=== PATIENT | female | born 1985 | race Caucasian/White ===

== ENCOUNTER 2017-06-01 16:18 | Outpatient (CLI) | payer OTHER ==
[~2017-06-01] VITALS: Ht 157.5 cm; Wt 71.3 kg
[2017-06-01 16:47] VITALS: BP 116/58; PULSE 92; RESP 19; Ht 157.5 cm; Wt 71.3 kg
[2017-06-01] MEDS ORDERED: PREN1TAB13 PO (16:49)
--- NOTE | 2017-06-01 18:03 | RADRPT ---
PROCEDURE: US OB biophysical profile. CLINICAL INDICATION: Decreased movements TECHNIQUE: Multiple sonographic images of the pelvis were obtained. The images were reviewed on a PACS workstation. COMPARISON: None FINDINGS: There is a viable intrauterine gestation. There is a normal amount of amniotic fluid with an JAVIER = 10.2 cm. Cardiac activity is present with 146 beats per minute. The placenta is posterior. No evidence of placenta previa or abruption. Biophysical profile: movement 2/2 tone 2/2. breathing 2/2 JAVIER 2/2 Total 04/01 IMPRESSION: Normal biophysical profile. Estimated gestational age: 38 weeks and 6 days RPTAT:AAJJ Physician Felice Date Time Electronically viewed and signed by Physician Felice on 06/01/2017 18:02 /
--- NOTE | 2017-06-01 20:50 | PN ---
Triage Information Date/Time Reason for visit: Uterine contractions (since last night and intermittent pelvic pressure) Weeks of Gestation 38+6 /Para 2/0 Diabetes: none Hypertention: none Additional information Reports normal FM, denies LOF or VB Objective Vital Signs Date Time Temp Pulse Resp B/P Pulse Ox O2 Delivery O2 Flow Rate FiO2 06/01/17 16:47 98.0 92 19 116/58 99 Room Air Heart Rate: 150's (period of tachycardia to 160s) Heart Rate Comments moderate variability, +accels, no decels Contractions: >10 Minutes Apart (sporadic contractions) Exam FT/thick/high/posterior x2 Results/Medications Imaging Results PROCEDURE: US OB biophysical profile. CLINICAL INDICATION: Decreased movements TECHNIQUE: Multiple sonographic images of the pelvis were obtained. The images were reviewed on a PACS workstation. COMPARISON: None FINDINGS: There is a viable intrauterine gestation. There is a normal amount of amniotic fluid with an JAVIER = 10.2 cm. Cardiac activity is present with 146 beats per minute. The placenta is posterior. No evidence of placenta previa or abruption. Biophysical profile: movement 2/2 tone 2/2. breathing 2/2 JAVIER 2/2 Total 04/01 IMPRESSION: Normal biophysical profile. Disposition: Discharge Assessment/Plan Appropriate for d/c home No e/o labor Reassuring FWB with 04/01 BPP and reactive NST Pt encouraged to f/up on 06/06 as scheduled Labor/ROM/FKC precautions reviewed Questions answered to patient's satisfaction GREG BARGER MD Jun 01, 2017 20:50
--- NOTE | 2017-06-01 21:58 | TRIAGE ---
OB Triage Datetime Report Generated by CPN: 06/01/2017 21:58 Datetime: 06/01/2017 21:00 Labor Evaluation Frequency: IRREGULAR Monitor Mode: External Duration (sec)2399: 50-90 Quality: Mild Pattern: Normal: <= 5 Contractions in 10 Minutes Resting Tone [place]: Relaxed Heart Rate FHR Baseline Rate: 150 Monitor Mode: External US Variability: Moderate 6-25 bpm Accelerations: Prolonged Decelerations: None Category: Category I Pain Presence: None/Denies Pain Assessment Comments: PATIENT STATES THAT SHE DOESNT FEEL UC'S SHE ONLY FEELS PRESSURE Datetime: 06/01/2017 20:00 Labor Evaluation Frequency: NONE Monitor Mode: External Pattern: Normal: <= 5 Contractions in 10 Minutes Resting Tone [place]: Relaxed Heart Rate FHR Baseline Rate: 140 Monitor Mode: External US Variability: Moderate 6-25 bpm Accelerations: 15X15 Decelerations: None Category: Category I Datetime: 06/01/2017 19:58 Vaginal Exam Dilatation (cms): 0.5 Effacement (%): 20 Station: -3 Exam By: BE Datetime: 06/01/2017 19:07 Assessment Type: Triage Datetime: 06/01/2017 17:28 Stage of : OB Triage Maternal Assessment Level of Consciousness: Fully Conscious DTR's/Clonus: DTRs 1+ Headache: Denies Breath Sounds, Left: Clear and Equal Breath Sounds, Right: Clear and Equal RUQ Epigastric Pain: Denies Labor Evaluation Frequency: OCC Monitor Mode: External Duration (sec)2399: 40-80 Quality: Mild Pattern: Normal: <= 5 Contractions in 10 Minutes Resting Tone [place]: Relaxed Heart Rate FHR Baseline Rate: 135 Monitor Mode: External US Variability: Moderate 6-25 bpm Accelerations: 15X15 Decelerations: None Category: Category I Pain Assessment Pain Scale: 5 Pain Presence: Intermittent Pain Type: Contraction Pain Location: Back Pain Goal: 3 Membrane Status: Intact Datetime: 06/01/2017 16:50 Maternal Assessment Level of Consciousness: Fully Conscious DTR's/Clonus: DTRs 1+ Headache: Denies Blurred Vision: No Respiratory Effort: Unlabored Breath Sounds, Left: Clear and Equal Breath Sounds, Right: Clear and Equal RUQ Epigastric Pain: Denies Facial Edema: None Labor Evaluation Frequency: IRREGULAR Monitor Mode: External Duration (sec)2399: 40-80 Quality: Mild Pattern: Normal: <= 5 Contractions in 10 Minutes Resting Tone [place]: Relaxed Heart Rate FHR Baseline Rate: 135 Monitor Mode: External US Variability: Moderate 6-25 bpm Accelerations: 15X15 Decelerations: None Category: Category I Pain Assessment Pain Scale: 5 Pain Presence: Intermittent Pain Type: Contraction Pain Location: Back Pain Goal: 3 Membrane Status: Intact Datetime: 06/01/2017 16:31 Assessment Type: Triage EGA: 38.6 Maternal Assessment Level of Consciousness: Fully Conscious DTR's/Clonus: DTRs 2+; No Clonus Headache: Denies Blurred Vision: No Respiratory Effort: Unlabored; Regular Rhythm; Equal Expansion Breath Sounds, Left: Clear and Equal Breath Sounds, Right: Clear and Equal Nausea/Vomiting: Denies RUQ Epigastric Pain: Denies Lower Extremities Edema: None Degree: None Upper Extremities Edema: None Degree: None Facial Edema: None Fall Risk Assessment History of Falling: (0) No Secondary Diagnosis: (0) No Ambulatory Aid: (0) Bedrest/Nurse Assist IV Therapy: (0) No Gait: (0) Normal/Bedrest/Immobile Mental Status: (0) Oriented to Own Ability Fall Score: 0 Fall Risk Score Definition: No Risk: No action required Datetime: 06/01/2017 16:11 Time of Arrival: 06/01/2017 16:11 Arrived By: Ambulatory Arrived From: Home Chief Complaint: PT CAME IN C/O UC'S Q 5-63 MIN Movement: Present Contractions: Denies/Absent Rupture of Membranes: Denies Vaginal Discharge: Denies Recent Sexual Intercouse: Denies Abdominal Trauma: Not Applicable Additional Patient Complaints: NONE Time Provider Notified: 06/01/2017 16:31 Provider Notified: ARNOLD Initial Plan: NST AND BPP AMBULATE FOR 1 1/2 HR AND THEN RE-CHECK
== END 2017-06-01 21:34 | disposition home or self-care (01) ==
LOC: OBT 16:18 → L-D 16:19 → OBT 21:34
PROVIDERS: ATTEND Obstetrics & Gynecology
DX: O62.9 Abnormality of forces of labor, unspecified (principal); O36.8130 Decreased fetal movements, third trimester, not applicable or unspecified; Z3A.38 38 weeks gestation of pregnancy
CPT/HCPCS: 76818; Z7500; G0463

== ENCOUNTER 2017-06-09 12:23 | Inpatient (IN) | payer OTHER ==
[~2017-06-09] VITALS: Ht 154.9 cm; Wt 72.3 kg
[~2017-06-09 12:23] MED LIST: PREN1TAB13 PO
--- NOTE | 2017-06-09 12:45 | RADRPT ---
PROCEDURE: US OB biophysical profile. CLINICAL INDICATION: decreased movements, contractions TECHNIQUE: Multiple sonographic images of the pelvis were obtained. The images were reviewed on a PACS workstation. COMPARISON: US PELVIS 06/01/2017 FINDINGS: There is a single viable intrauterine gestation. Cardiac activity is present with 129 beats per min grant. There is a vertex presentation. The placenta is posterior. There is no evidence of placental abruption. There is a normal amount of amniotic fluid with an JAVIER = 8.2 cm. Biophysical profile: movement 2/2 tone 2/2. breathing 2/2 JAVIER 2/2 Total 04/01 RPTAT: AA . IMPRESSION: Normal biophysical profile. . .Manjeet Banda MD, MD Date Time Electronically viewed and signed by .Manjeet Banda MD, MD on 06/09/2017 12:45 .S/
[2017-06-09 14:08] VITALS: Ht 154.9 cm; Wt 72.3 kg
[2017-06-09 14:09] VITALS: BP 107/62; PULSE 106; RESP 18
[2017-06-09] MEDS ORDERED: CARBOPROST 250 MCG INJ IM PRN (14:30)
[2017-06-09] MEDS ORDERED: LACTATED RINGER'S 1,000 ML IV PRN (14:30)
[2017-06-09] MEDS ORDERED: OXYTOCIN 30 UNITS/LR 500 ML IV SCH (14:30)
[2017-06-09] MEDS ORDERED: METHYLERGONOVINE 0.2 MG INJ IM PRN (14:30)
[2017-06-09] MEDS ORDERED: OXYTOCIN 30 UNITS/LR 500 ML IV PRN (14:30)
[2017-06-09] MEDS ORDERED: LIDOCAINE 1% (MPF) 30 ML INJ INJ PRN (14:30)
[2017-06-09] MEDS ORDERED: BUTORPHANOL 2 MG INJ IV PRN ×2 (14:30)
[2017-06-09] MEDS ORDERED: MISOPROSTOL 200 MCG TAB PR PRN (14:30)
[2017-06-09] MEDS: LACTATED RINGER'S 1,000 ML IV SCH ×2 (16:05→23:06)
[2017-06-09 16:39] LABS: BASOPHILS % 0.2 % (0.0-2.0); EOSINOPHILS % 0.8 % (0.0-7.0); HEMATOCRIT 36.5 % (37.0-47.0); LYMPHOCYTES # 1.6 10^3/ul (0.8-2.9); LYMPHOCYTES % 30.9 % (15.0-51.0); MEAN CORPUSCULAR HGB CONC 35.6 g/dl (32.0-37.0); MEAN CORPUSCULAR VOLUME 92.6 fl (82.0-101.0); MEAN PLATELET VOLUME 9.9 fl (7.4-10.4); MONOCYTE # 0.6 10^3/ul (0.3-0.9); MONOCYTES % 11.8 % (0.0-11.0); NEUTROPHIL # 2.8 10^3/ul (1.6-7.5); NEUTROPHILS % 55.9 % (39.0-77.0); PLATELET COUNT 157 10^3/UL (140-415); RED BLOOD COUNT 3.94 10^6/ul (4.20-5.40); RED CELL DISTRIBUTION WIDTH 12.6 % (11.5-14.5); WHITE BLOOD COUNT 5.1 10^3/ul (4.8-10.8)
[2017-06-09 16:53] LABS: INR 0.97; PARTIAL THROMBOPLASTIN TIME 29.3 Sec (25.0-35.0); PROTIME 12.9 Sec (12.2-14.2)
--- NOTE | 2017-06-09 18:00 | HP ---
Date/Time of Note Date/Time of Note DATE: 06/09/17 TIME: 17:45 OB - History Hx of Present Free Text/Dictation 31 years old female T0 PT 0 SAB 1 IAB 0L0 admitted to [facility] at 40 weeks gestation with EDC June 09, 2017 in early labor pelvic examination on admission cervix closed 40% effaced vertex at -2 stay physical profile 04/01 with JAVIER 8.6 heart rate category 1 Chief Complaint: Labor contraction Estimated Due Date: Jun 09, 2017 : 2 Para: 0 Spontaneous : 1 Therapeutic : 0 Ultrasounds: No ultrasounds, Normal mid trimester US Obstetrical Complications: None Medical Complications: None Past Family/Social History * Past Medical, Surgical, Family and Obstetric Histories reviewed from chart. Rubella: immune RPR/VDRL: Negative GBS Status: Negative HBsAG: Negative OB Admission Exam Vital Signs Vital Signs Vital Signs Date Time Temp Pulse Resp B/P Pulse Ox O2 Delivery O2 Flow Rate FiO2 06/09/17 14:09 98.0 106 18 107/62 Physical Exam HEENT: WNL Heart: Rhythm Normal Extremities: Normal Reflexes: Normal Cervical Dilatation: None Effacement: 50% Station: -2 Membranes: Intact Heart Rate: 130's Decelerations: No Decelerations Varibility: Moderate Contractions on Admission: >10 Minutes Apart Intensity: Mild Last 72 hours Lab Results CBC & BMP 06/09/17 16:24 OB Assessment/Plan Reason for admission: other (Early labor with JAVIER 8.6) Plan: Other (31 years old EDC June 09 admitted in early labor requires labor augmentation process of augmentation was discussed with the and plan for Cervidil augmentation discussed all questions answered patient informed availability labor epidural and she is willing to go ahead with the labor augmentation) ALEXANDRE CUTLER MD Jun 09, 2017 17:55
[2017-06-09] MEDS ORDERED: CALCIUM CARBONATE 500 MG CHEW TAB PO ONE (20:00)
[2017-06-09] MEDS ORDERED: DINOPROSTONE 10 MG VAG SUPP VAG ONE (20:00)
[2017-06-09] MEDS: ACETAMINOPHEN 325 MG TAB PO PRN (20:25)
[2017-06-10] MEDS: LACTATED RINGER'S 1,000 ML IV SCH ×3 (06:19→23:00)
[2017-06-10] MEDS ORDERED: DINOPROSTONE 10 MG VAG SUPP VAG ONE (09:45)
[2017-06-10] MEDS ORDERED: CALCIUM CARBONATE 500 MG CHEW TAB PO PRN (17:00)
[2017-06-10] MEDS: ACETAMINOPHEN 325 MG TAB PO PRN (20:05)
[2017-06-11] MEDS ORDERED: MISOPROSTOL 25 MCG CAPSULE PO ONE
[2017-06-11] MEDS ORDERED: OXYTOCIN 30 UNITS/LR 500 ML IV SCH (07:00)
[2017-06-11] MEDS: LACTATED RINGER'S 1,000 ML IV SCH ×2 (07:02→10:31)
[2017-06-11] MEDS ORDERED: DIPHENHYDRAMINE 50 MG INJ IV PRN (10:30)
[2017-06-11] MEDS ORDERED: FENTAnyl 2MCG/ML-ROPIV 0.2% 100 ML BAG EPI SCH (10:30)
[2017-06-11] MEDS ORDERED: NALOXONE (0.4 MG/ML) INJ IV PRN (10:30)
[2017-06-11] MEDS ORDERED: ONDANSETRON 4 MG INJ IV PRN ×2 (10:30→21:00)
[2017-06-11] MEDS: OXYTOCIN 30 UNITS/LR 500 ML IV SCH ×3 (17:52→22:35)
--- NOTE | 2017-06-11 18:33 | LDN ---
Date/Time of Note Date/Time of Note DATE: 06/11/17 TIME: 18:27 Delivery Summary Normal spontaneous vaginal delivery of a baby boy from OA position shoulders delivered with no difficulty rest of the baby's body followed cord clamped after stopped pulsation placenta is spontaneous expulsion inspected complete blood loss 250 cc Placenta Delivered: Spontaneously Meconium: none Episiotomy: No Laceration repair: Bilateral inner labial Mica laceration repaired with 4-0 chromic catgut, small 1 cm perineal laceration repaired with 4-0 chromic catgut Anesthesia type: Epidural Sponge & Needle done & correct: Yes All needle counts correct: Yes Any foreign bodies felt in the: No Problems: Infant Delivery Information Sex Infant Sex: male Apgars 1 Minute: 9 5 Minute: 9 Suctioning Nose & mouth suctioned at [place]: Yes Delee suction performed: No Umbilical Cord Umbilical cord with: 3 Vessels Cord presentations: nuchal cord Cord Blood was obtained: Yes ALEXANDRE CUTLER MD Jun 11, 2017 18:33
[2017-06-11 21:00] VITALS: BP 110/59; PULSE 98; RESP 18
[2017-06-11] MEDS ORDERED: OXYCODONE/ASPIRIN (4.88/325) TAB PO PRN (21:00)
[2017-06-11] MEDS ORDERED: ACETAMINOPHEN 325 MG TAB PO PRN (21:00)
[2017-06-11] MEDS ORDERED: LANOLIN 7 GM TUBE TOP PRN (21:00)
[2017-06-11] MEDS ORDERED: DIBUCAINE 1% 30 GM OINT PR PRN (21:00)
[2017-06-11] MEDS ORDERED: HYDROCODONE/APAP (5/325) TAB PO PRN ×2 (21:00)
[2017-06-11] MEDS: WITCH HAZEL/GLYCERIN PAD PR PRN (21:12)
[2017-06-11] MEDS: BENZOCAINE 20% 56 ML SPRAY TOP PRN (21:12)
[2017-06-11] MEDS: SENNA/DOCUSATE NA (8.6MG/50MG) TAB PO SCH (21:13)
[2017-06-11] MEDS: OXYCODONE/ASPIRIN (4.88/325) TAB PO PRN (22:39)
[2017-06-11] MEDS: IBUPROFEN 600 MG TAB PO SCH (23:58)
[2017-06-12] VITALS: BP 112/56; PULSE 104; RESP 18
[2017-06-12] MEDS: OXYTOCIN 30 UNITS/LR 500 ML IV SCH (02:51)
[2017-06-12 04:00] VITALS: BP 95/51; PULSE 81; RESP 18
[2017-06-12] MEDS: IBUPROFEN 600 MG TAB PO SCH ×4 (05:38→23:40)
[2017-06-12 07:45] VITALS: BP 113/57; PULSE 104; RESP 20
[2017-06-12] MEDS: SENNA/DOCUSATE NA (8.6MG/50MG) TAB PO SCH ×2 (08:49→21:26)
[2017-06-12] MEDS ORDERED: INFLUENZA VIRUS VACCINE 0.5 ML (DISPENSING) IM* ONE (09:00)
[2017-06-12 12:00] VITALS: BP 100/56; PULSE 91; RESP 18
[2017-06-12 12:13] LABS: BASOPHILS % 0.2 % (0.0-2.0); EOSINOPHILS # 0.1 10^3/ul (0.0-0.5); EOSINOPHILS % 1.3 % (0.0-7.0); HEMATOCRIT 34.1 % (37.0-47.0); HEMOGLOBIN 12.1 g/dl (12.0-16.0); LYMPHOCYTES # 1.7 10^3/ul (0.8-2.9); LYMPHOCYTES % 17.5 % (15.0-51.0); MEAN CORPUSCULAR HEMOGLOBIN 32.6 pg (29.0-33.0); MEAN CORPUSCULAR HGB CONC 35.5 g/dl (32.0-37.0); MEAN CORPUSCULAR VOLUME 91.9 fl (82.0-101.0); MEAN PLATELET VOLUME 10.1 fl (7.4-10.4); MONOCYTE # 0.8 10^3/ul (0.3-0.9); MONOCYTES % 8.5 % (0.0-11.0); NEUTROPHIL # 7.1 10^3/ul (1.6-7.5); NEUTROPHILS % 72.1 % (39.0-77.0); PLATELET COUNT 147 10^3/UL (140-415); RED BLOOD COUNT 3.71 10^6/ul (4.20-5.40); RED CELL DISTRIBUTION WIDTH 12.6 % (11.5-14.5); WHITE BLOOD COUNT 9.9 10^3/ul (4.8-10.8)
[2017-06-12 16:00] VITALS: BP 106/56; PULSE 76; RESP 17
--- NOTE | 2017-06-12 17:23 | PN ---
Date/Time of Note Date/Time of Note DATE: 06/12/17 TIME: 17:22 OB Subjective Subjective Subjective June 12, 2017 Post day 1 Patient is doing well, Ambulatory She is afebrile Abdomen is soft , Fundus is firm Moderate amount of lochia Breasts are soft, Nipples are intact No calf tenderness. Perineum is healing well. Laboratory Tests Test 06/12/17 11:06 White Blood Count 9.910^3/ul Red Blood Count 3.7110^6/ul Hemoglobin 12.1g/dl Hematocrit 34.1% Mean Corpuscular Volume 91.9fl Mean Corpuscular Hemoglobin 32.6pg Mean Corpuscular Hemoglobin Concent 35.5g/dl Red Cell Distribution Width 12.6% Platelet Count 35580^3/UL Mean Platelet Volume 10.1fl Neutrophils % 72.1% Lymphocytes % 17.5% Monocytes % 8.5% Eosinophils % 1.3% Basophils % 0.2% Nucleated Red Blood Cells % 0.0/100WBC Neutrophils # 7.110^3/ul Lymphocytes # 1.710^3/ul Monocytes # 0.810^3/ul Eosinophils # 0.110^3/ul Basophils # 0.010^3/ul Nucleated Red Blood Cells # 0.010^3/ul Current Medications Medications (Trade) Dose Ordered Sig/Jorge Route PRN Reason Start Time Stop Time Status Last Admin Dose Admin Lactated Ringer's (Lr) 1,000 ml @ 125 mls/hr Q8H IV 06/09/17 14:03 06/11/17 20:45 DC 06/11/17 10:31 Butorphanol Tartrate (Stadol) 1 mg Q2H PRN IV PAIN 06/09/17 14:30 06/11/17 20:45 DC Butorphanol Tartrate (Stadol) 2 mg Q2H PRN IV PAIN 06/09/17 14:30 06/11/17 20:45 DC 06/11/17 03:55 Lidocaine 30 ml 30 ml ONCE PRN INJ EPISIOTOMY/TEARING 06/09/17 14:30 06/11/17 20:45 DC Oxytocin/Lactated Ringer's 500 ml @ 125 mls/hr ONCE -MAY REPEAT X1 IV 06/09/17 14:30 06/11/17 20:45 DC 06/11/17 18:23 Oxytocin/Lactated Ringer's 500 ml @ 125 mls/hr ONCE IV 06/09/17 14:30 06/11/17 20:45 DC Lactated Ringer's 1,000 ml @ 2,000 mls/hr Q30M PRN IV PRE-EPIDURAL BOLUS 06/09/17 14:30 06/11/17 20:45 DC Oxytocin/Lactated Ringer's 500 ml @ 0 mls/hr ONCE PRN IV For Hemorrhage Management 06/09/17 14:30 06/11/17 20:45 DC Methylergonovine Maleate (Methergine) 0.2 mg ONCE PRN IM VAGINAL BLEEDING 06/09/17 14:30 06/11/17 20:46 DC Carboprost Tromethamine (Hemabate) 250 mcg ONCE PRN IM VAGINAL BLEEDING 06/09/17 14:30 06/11/17 20:46 DC Misoprostol (Cytotec) 1,000 mcg ONCE PRN WI VAGINAL BLEEDING 06/09/17 14:30 06/11/17 20:46 DC Dinoprostone (Cervidil Vaginal Supp) 10 mg ONCE ONCE VAG 06/09/17 20:00 06/09/17 20:01 DC 06/09/17 20:39 Acetaminophen (Tylenol Tab) 650 mg Q4H PRN PO PAIN AND OR ELEVATED TEMP 06/09/17 20:00 06/11/17 20:46 DC 06/10/17 20:05 Calcium Carbonate (Tums) 500 mg ONCE ONCE PO 06/09/17 20:00 06/09/17 20:01 DC 06/09/17 21:18 Dinoprostone (Cervidil Vaginal Supp) 10 mg ONCE ONCE VAG 06/10/17 09:45 06/10/17 09:46 DC 06/10/17 10:01 Calcium Carbonate (Tums) 500 mg TID PRN PO UPSET STOMACHE 06/10/17 17:00 06/11/17 20:46 DC 06/10/17 17:31 Misoprostol 25 mcg 25 mcg ONCE ONCE PO 06/11/17 00:00 06/11/17 00:01 DC 06/11/17 00:22 Oxytocin/Lactated Ringer's 500 ml @ 0 mls/hr TITRATE IV 06/11/17 07:00 06/11/17 20:46 DC 06/11/17 07:06 Naloxone HCl (Narcan) 0.1 mg Q2M PRN IV FOR RESP RATE 8 OR LESS 06/11/17 10:30 06/11/17 20:46 DC Diphenhydramine HCl (Benadryl) 25 mg Q6H PRN IV ITCHING 06/11/17 10:30 06/11/17 20:46 DC Ondansetron HCl (Zofran Inj) 4 mg Q6H PRN IV NAUSEA AND/OR VOMITING 06/11/17 10:30 06/11/17 20:46 DC Fentanyl/ Ropivacaine 100 ml 100 ml EPIDURAL INFUSION EPI 06/11/17 10:30 06/11/17 20:46 DC Oxytocin/Lactated Ringer's 500 ml @ 125 mls/hr Q4H IV 06/11/17 20:42 06/12/17 04:41 DC 06/12/17 02:51 Ibuprofen (Motrin) 600 mg Q6 PO 06/12/17 00:00 06/12/17 12:56 Acetaminophen (Tylenol Tab) 650 mg Q4H PRN PO PAIN LEVEL 1-5 06/11/17 21:00 Acetaminophen/ Hydrocodone Bitart (Halfway (5/325)) 1 tab Q4H PRN PO PAIN LEVEL 1-5 06/11/17 21:00 Acetaminophen/ Hydrocodone Bitart (Halfway (5/325)) 2 tab Q4H PRN PO PAIN LEVEL 6-10 06/11/17 21:00 Oxycodone/Aspirin (Percodan) 1 tab Q3H PRN PO PAIN LEVEL 1-5 06/11/17 21:00 Oxycodone/Aspirin (Percodan) 2 tab Q3H PRN PO PAIN LEVEL 6-10 06/11/17 21:00 06/11/17 22:39 Ondansetron HCl (Zofran Inj) 4 mg Q6H PRN IV NAUSEA AND/OR VOMITING 06/11/17 21:00 Senna/Docusate Sodium (Senokot-S) 1 tab BID PO 06/11/17 21:00 06/12/17 08:49 Witch Elvie/ Glycerin (Tucks Pads) 1 pad BEDSIDE MEDICATION PRN WI HEMORRHOID/EPISIOTMY PAIN 06/11/17 21:00 06/11/17 21:12 Benzocaine (Dermoplast [place]) 1 spray BEDSIDE MEDICATION PRN TOP HEMORRHOID/EPISIOTMY PAIN 06/11/17 21:00 06/11/17 21:12 Dibucaine (Nupercainal) 1 applic BEDSIDE MEDICATION PRN WI HEMORRHOID/EPISIOTMY PAIN 06/11/17 21:00 Lanolin (Xnr-C-Oygcpn) 1 applic BEDSIDE MEDICATION PRN TOP BEDSIDE FOR PATRICIA TO NIPPLES 06/11/17 21:00 06/11/17 21:12 Measles/Mumps/ Rubella Vaccine Live (Mmr Ii Vaccine) 0.5 ml ONCE ONCE SC* 06/13/17 09:00 06/13/17 09:01 Influenza Virus Vaccine (Fluzone) 0.5 ml ONCE ONCE IM* 06/12/17 09:00 06/12/17 09:01 DC 06/12/17 16:46 Breast feeding the new born. JAILENE CEE MD Jun 12, 2017 17:23
[2017-06-12 20:00] VITALS: BP 95/52; PULSE 95; RESP 18
[2017-06-12] MEDS: BENZOCAINE 20% 56 ML SPRAY TOP PRN (21:26)
[2017-06-12] MEDS: OXYCODONE/ASPIRIN (4.88/325) TAB PO PRN (21:56)
[2017-06-13 04:00] VITALS: BP 118/57; PULSE 85; RESP 18
[2017-06-13] MEDS: IBUPROFEN 600 MG TAB PO SCH ×2 (05:36→12:26)
[2017-06-13 08:45] VITALS: BP 101/59; PULSE 89; RESP 18
[2017-06-13] MEDS ORDERED: MEASLES,MUMPS,RUBELLA VACCINE INJ SC* ONE (09:00)
[2017-06-13] MEDS: SENNA/DOCUSATE NA (8.6MG/50MG) TAB PO SCH (09:11)
--- NOTE | 2017-06-13 09:51 | PD.PPDC ---
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
--- NOTE | 2017-06-13 09:53 | DS ---
Date/Time of Note Date/Time of Note DATE: 06/13/17 TIME: 09:51 Discharge Summary Admission/Discharge Info Admit Date/Time Jun 09, 2017 at 13:40 Discharge Date/Time June 13, 2017 at 10:30 AM Discharge Diagnosis Post normal vaginal delivery day 2 Patient Condition: Good Procedures Normal vaginal delivery Hx of Present Illness Term in labor Hospital Course Satisfactory uneventful Home Meds Reported Medications Pnv95/Ferrous Fumarate/FA ( Vitamins Tablet) 1 Each Tablet, 1 EACH PO, TAB 06/01/17 Follow-up Plan instruction given recommended to make appointment to be seen at the clinic in 2 weeks Primary Care Provider [facility] Pending Labs Laboratory Tests Test 06/12/17 11:06 White Blood Count 9.910^3/ul (4.8-10.8) Red Blood Count 3.7110^6/ul (4.20-5.40) Hemoglobin 12.1g/dl (12.0-16.0) Hematocrit 34.1% (37.0-47.0) Mean Corpuscular Volume 91.9fl (82.0-101.0) Mean Corpuscular Hemoglobin 32.6pg (29.0-33.0) Mean Corpuscular Hemoglobin Concent 35.5g/dl (32.0-37.0) Red Cell Distribution Width 12.6% (11.5-14.5) Platelet Count 89519^3/UL (140-415) Mean Platelet Volume 10.1fl (7.4-10.4) Neutrophils % 72.1% (39.0-77.0) Lymphocytes % 17.5% (15.0-51.0) Monocytes % 8.5% (0.0-11.0) Eosinophils % 1.3% (0.0-7.0) Basophils % 0.2% (0.0-2.0) Nucleated Red Blood Cells % 0.0/100WBC (0.0-0.0) Neutrophils # 7.110^3/ul (1.6-7.5) Lymphocytes # 1.710^3/ul (0.8-2.9) Monocytes # 0.810^3/ul (0.3-0.9) Eosinophils # 0.110^3/ul (0.0-0.5) Basophils # 0.010^3/ul (0.0-0.1) Nucleated Red Blood Cells # 0.010^3/ul (0.0-0.0) ALEXANDRE CUTLER MD Jun 13, 2017 09:53
[2017-06-13] MEDS: WITCH HAZEL/GLYCERIN PAD PR PRN (12:26)
[2017-06-13] MEDS: BENZOCAINE 20% 56 ML SPRAY TOP PRN (12:27)
== END 2017-06-13 15:03 | disposition home or self-care (01) | DRG 775 ==
LOC: L-D 12:23 → OBT 12:23 → L-D 12:39 → OBT 13:42 → L-D 14:08 → PP1 06-11 20:59
PROVIDERS: ADMIT Obstetrics & Gynecology; ATTEND Obstetrics & Gynecology
PROC: 10E0XZZ Delivery of Products of Conception, External Approach (ICD-10-PCS; principal; 2017-06-11)
PROC: 3E0P3VZ Introduction of Hormone into Female Reproductive, Percutaneous Approach (ICD-10-PCS; 2017-06-11)
PROC: 0HQ9XZZ Repair Perineum Skin, External Approach (ICD-10-PCS; 2017-06-11)
DX: O48.0 Post-term pregnancy (principal); O69.81X0 Labor and delivery complicated by cord around neck, without compression, not applicable or unspecified; O70.0 First degree perineal laceration during delivery; Z3A.40 40 weeks gestation of pregnancy; Z37.0 Single live birth
CPT/HCPCS: 62319; 76818; 85025; 85610; 85730; 86592; 86900; 86901; 87340; 90686; G0463; J0595; J2590; J3010; J7120